=== PATIENT | male | born 1950 | race Caucasian/White ===

== ENCOUNTER → 2016-10-26 | Outpatient (CLI) | payer MEDICARE, OTHER ==
--- NOTE | 2016-10-26 10:29 | KCIC ---
Chest, two views Indication: Preop and COPD. Time of exam 10:08 a.m. No prior studies are available for comparison. Heart size is normal. Lungs are hyperinflated consistent with COPD. No infiltrate, effusion or pneumothorax is detected. Impression: COPD. No acute feature detected. Electronically signed by: Alvaro Marquez MD (Oct 26, 2016 10:28:05)
== END | disposition home or self-care (01) ==
LOC: KCIC 09:58
PROVIDERS: ATTEND Family Medicine
DX: Z01.818 Encounter for other preprocedural examination (principal); J44.9 Chronic obstructive pulmonary disease, unspecified
CPT/HCPCS: 71020